=== PATIENT | female | born 1990 | race African-American/Black ===

== ENCOUNTER 2016-12-04 13:53 | Emergency (ER) | payer MEDICAID, OTHER ==
[~2016-12-04] VITALS: Ht 152.4 cm; Wt 70.3 kg
[~2016-12-04 13:53] MED LIST: AMOXICILLIN500 MG ORAL; CIPRODEX OTIC7.5 M1 BOTH EARS; FLONASE1 SPRAYS NASAL; IBUPROFEN600 MG ORAL; PROMETHAZINE V240 ML ORAL; TESSALON PERLE100 M2 ORAL
[2016-12-04 14:11] VITALS: BP 112/67
[2016-12-04 14:46] LABS: APPEARANCE,URINE CLEAR; KETONES,URINE NEGATIVE (NEGATIVE); LEUKOCYTE ESTERASE ,URINE 1+ (NEGATIVE); NITRITE,URINE NEGATIVE (NEGATIVE); PH,URINE 8 (4.5-8.0); PROTEIN,URINE NEGATIVE (NEGATIVE); UROBILINOGEN,URINE 1 MG/DL (0.0-1.0)
[2016-12-04 14:59] LABS: BACTERIA,URINE FEW /HPF; MUCUS,URINE FEW /LPF (NONE/OCC); RBC,URINE 0-2 /HPF (0 - 2); SQUAMOUS EPITHELIAL CELL,UR FEW /LPF (NONE/OCC)
[2016-12-04] MEDS ORDERED: PREDNISONE20 MG ORAL (15:12)
[2016-12-04] MEDS ORDERED: PROAIR HFA8.5 GM INH (15:12)
[2016-12-04] MEDS ORDERED: IBUPROFEN600 MG ORAL (15:12)
[2016-12-04 15:21] VITALS: BP 116/65
--- NOTE | 2016-12-04 16:42 | Emergency Room Report ---
History of Present Illness General Chief Complaint: Upper Respiratory Illness Source: Patient Present Illness HPI The patient is a 26-year-old female presenting for cough and congestion for the past 3 days. The patient states that she does have a history of asthma and has not been using her medications. She denies any sick contacts or recent travel. She states that this does feel like asthma exacerbation. She denies any pain. She denies other symptoms including nausea, vomiting, fever, chills, sore throat, shortness of breath, rash Allergies: Coded Allergies: No Known Allergies (Unverified , 05/28/14) Patient History Past Medical History: see triage record Pertinent Family History: none Last Menstrual Period: 11/24/16 Now: No Reviewed Nursing Documentation: PMH: Agreed, PSxH: Agreed Nursing Documentation-PMH Past Medical History: No History, Except For Hx Asthma: Yes Review of Systems All Other Systems: negative except mentioned in HPI Physical Exam Vital Signs Date Time Temp Pulse Resp B/P Pulse Ox O2 Delivery O2 Flow Rate FiO2 12/04/16 13:58 98.1 77 20 112/67 97 Room Air Sp02 EP Interpretation: reviewed, normal General Appearance: no apparent distress, alert, GCS 15, non-toxic Head: normocephalic, atraumatic Eyes: bilateral eye PERRL, bilateral eye normal inspection ENT: hearing grossly normal, normal pharynx, no angioedema, normal voice Neck: full range of motion, supple/symm/no masses Respiratory: chest non-tender, lungs clear, normal breath sounds, speaking full sentences Cardiovascular #1: regular rate, rhythm, no edema Musculoskeletal: back normal, gait/station normal, normal range of motion, non- tender Neurologic: alert, oriented x3, responsive, motor strength/tone normal, sensory intact, speech normal Psychiatric: judgement/insight normal, memory normal, mood/affect normal, no suicidal/homicidal ideation Skin: normal color, no rash, warm/dry, well hydrated Lymphatic: no adenopathy Medical Decision Making PA Attestation Dr. Echavarria is my supervising physician. Patient management was discussed with my supervising physician Diagnostic Impression: Primary Impression: Asthma Qualified Codes: J45.901 - Unspecified asthma with (acute) exacerbation ER Course The patient is a 26-year-old female presenting for cough and congestion Differential diagnosis include but not limited to asthma, pharyngitis, sinusitis , AOM, bronchitis, PNA PE: No apparent distress. No TTP over maxillary or frontal sinuses. Lungs CTA bilat. No wheezing. No accessory muscle use. Heart: RRR, no abnormal heart sounds Ears: external auditory canal clear. Non erythematous. Bilat TM intact. Cone of light present bilat. No bulging of TM. No serous fluid seen. no nasal D/C no anterior cervical lymphad No tonsillar exudate. Uvula midline.Oropharynx non erythematous The patient asked for a urinalysis to check for infection although she did not have any symptoms. No signs of infection and neg preg. She'll be discharged home with a refill of asthma medications and needs to follow up with PMD Laboratory Tests Test 12/04/16 14:30 Urine Color Pale yellow Urine Appearance Clear Urine pH 8 (4.5-8.0) Urine Specific [place] 1.015 (1.005-1.035) Urine Protein Negative (NEGATIVE) Urine Glucose (UA) Negative (NEGATIVE) Urine Ketones Negative (NEGATIVE) Urine Occult Blood Negative (NEGATIVE) Urine Nitrite Negative (NEGATIVE) Urine Bilirubin Negative (NEGATIVE) Urine Urobilinogen 1 MG/DL (0.0-1.0) H Urine Leukocyte Esterase 1+ (NEGATIVE) H Urine RBC 0-2 /HPF (0 - 2) Urine WBC 2-4 /HPF (0 - 2) Urine Squamous Epithelial Cells Few /LPF (NONE/OCC) Urine Bacteria Few /HPF (NONE) Urine Mucus Few /LPF (NONE/OCC) H Urine HCG, Qualitative Negative Lab Results Impression No signs of infection Last Vital Signs Date Time Temp Pulse Resp B/P Pulse Ox O2 Delivery O2 Flow Rate FiO2 12/04/16 15:21 98.1 71 20 116/65 97 Room Air Status: improved Disposition: HOME, SELF-CARE Condition: Improved Scripts Prednisone* (PREDNISONE*) 20 Mg Tablet 40 MG ORAL DAILY, #10 TAB Prov: TERZIAN,MORRIS P.A. 12/04/16 Albuterol Sulfate* (PROAIR HFA*) 8.5 Gm Hfa.aer.ad 2 PUFFS INH Q6H, #8.5 GM 0 Refills Prov: TERZIAN,MORRIS P.A. 12/04/16 Ibuprofen* (MOTRIN*) 600 Mg Tablet 600 MG ORAL Q6H Y for For Pain, #30 TAB Prov: TERZIAN,MORRIS P.A. 12/04/16 Patient Instructions: Asthma, Adult, Asthma Attack Prevention Additional Instructions: I discussed my findings with the patient. All questions and concerns have been answered. Treatment and medication compliance have been addressed. I advised the patient that they need to follow up with PMD in 3-5 days. Return to ED if symptoms worsen, new symptoms arise, or if needed for any reason. Patient verbalized understanding of discharge instructions. MORRIS LIVINGSTON December 04, 2016 16:42
== END 2016-12-04 15:26 | disposition home or self-care (01) ==
LOC: EMR 14:33
DX: J45.901 Unspecified asthma with (acute) exacerbation (principal)
CPT/HCPCS: 81003; 81025; 99284

== ENCOUNTER 2018-06-10 11:05 | Emergency (ER) | payer MEDICAID ==
[~2018-06-10] VITALS: Ht 152.4 cm; Wt 69.9 kg
[~2018-06-10 11:05] MED LIST changes: +PREDNISONE20 MG ORAL; +PROAIR HFA8.5 GM INH
[2018-06-10 11:35] VITALS: BP 112/62
[2018-06-10 12:06] LABS: BILIRUBIN, URINE NEGATIVE (NEGATIVE); COLOR,URINE PALE YELLOW; GLUCOSE, URINE (UA) NEGATIVE (NEGATIVE); KETONES,URINE NEGATIVE (NEGATIVE); LEUKOCYTE ESTERASE ,URINE NEGATIVE (NEGATIVE); NITRITE,URINE NEGATIVE (NEGATIVE); PH,URINE 8 (4.5-8.0); PROTEIN,URINE NEGATIVE (NEGATIVE); UROBILINOGEN,URINE 1 MG/DL (0.0-1.0)
[2018-06-10 12:11] LABS: APPEARANCE,URINE SLIGHTLY CLOUDY
--- NOTE | 2018-06-10 14:24 | Emergency Room Report ---
History of Present Illness General Chief Complaint: Upper Respiratory Illness Source: Patient Present Illness HPI This patient presents accompanied by her daughter. They have similar symptoms. She has had cough and congestion. She is also had a sore throat. She did have one episode of vomiting a couple days ago. She has a history of asthma. She denies chest pain. She denies abdominal pain. She denies neck pain or stiffness. She denies headache. She has no other complaints. Allergies: Coded Allergies: No Known Allergies (Unverified , 05/28/14) Patient History Past Medical History: see triage record, asthma Social History: Denies: smoking, alcohol use, drug use Last Menstrual Period: 06/07/18 Now: No Reviewed Nursing Documentation: PMH: Agreed; PSxH: Agreed Nursing Documentation-PMH Hx Asthma: Yes Review of Systems All Other Systems: negative except mentioned in HPI Physical Exam Vital Signs Date Time Temp Pulse Resp B/P (MAP) Pulse Ox O2 Delivery O2 Flow Rate FiO2 06/10/18 11:20 98.2 83 18 112/62 98 Room Air Sp02 EP Interpretation: reviewed, normal General Appearance: no apparent distress, alert, GCS 15, non-toxic Head: normocephalic, atraumatic Eyes: bilateral eye normal inspection, bilateral eye PERRL ENT: hearing grossly normal, normal pharynx, no angioedema, normal voice Neck: full range of motion, supple/symm/no masses Respiratory: chest non-tender, lungs clear, normal breath sounds, no respiratory distress, no retraction, no accessory muscle use, speaking full sentences Cardiovascular #1: regular rate, rhythm, no edema Gastrointestinal: normal bowel sounds, non tender, soft, non-distended, no guarding, no rebound Rectal: deferred Musculoskeletal: back normal, gait/station normal, normal range of motion, non- tender Neurologic: alert, oriented x3, responsive, motor strength/tone normal, sensory intact, speech normal Psychiatric: judgement/insight normal, memory normal, mood/affect normal, no suicidal/homicidal ideation Skin: normal color, no rash, warm/dry, well hydrated Medical Decision Making Diagnostic Impression: Primary Impression: Upper respiratory infection Additional Impression: Influenza ER Course This patient has a clinical presentation consistent with influenza. Patient overall is nontoxic with no evidence of pneumonia on chest x-ray. There does not appear to be any emergency complications. Do not feel this patient needs admission at this time. The patient stable vital signs. The patient declined Tamiflu. The patient given close return precautions and followup instructions. Influenza A negative Chest X-Ray Diagnostic Results Chest X-Ray Diagnostic Results : Chest X-Ray Ordered: Yes # of Views/Limited/Complete: 1 View Indication: Other Interpretation: no consolidation, no effusion, no pneumothorax, no acute cardiopulmonary disease Impression: No acute disease Electronically Signed by: Cande Last Vital Signs Date Time Temp Pulse Resp B/P (MAP) Pulse Ox O2 Delivery O2 Flow Rate FiO2 06/10/18 11:35 83 18 Room Air 06/10/18 11:35 98.2 112/62 98 Disposition: HOME, SELF-CARE Condition: Improved Referrals: DILLON HUGHES,REFERRING (PCP) Patient Instructions: Upper Respiratory Infection, Adult Shannon Reagan DO Jun 10, 2018 14:24
[2018-06-10] MEDS ORDERED: ALBUTEROL SULF8.5 GM INH (14:25)
[2018-06-10] MEDS ORDERED: ROBITUSSIN NIG237 ML PO (14:25)
--- NOTE | 2018-06-10 14:48 | Diagnostic Imaging Report ---
Indication: Cough Technique: One view of the chest Comparison: none Findings: Lungs and pleural spaces are clear. The heart is upper limits normal in size. Impression: No acute process
[2018-06-10 15:05] VITALS: BP 115/70
== END 2018-06-10 14:30 | disposition home or self-care (01) ==
LOC: EMR 11:44
DX: J11.1 Influenza due to unidentified influenza virus with other respiratory manifestations (principal); R05 Cough
CPT/HCPCS: 71045; 81003; 81025; 86710; 99283

== ENCOUNTER 2019-01-20 15:38 | Emergency (ER) | payer MEDICAID ==
[~2019-01-20] VITALS: Ht 152.4 cm; Wt 70.3 kg
[~2019-01-20 15:38] MED LIST changes: +ALBUTEROL SULF8.5 GM INH; +ROBITUSSIN NIG237 ML PO
[2019-01-20 16:00] VITALS: BP 103/63
--- NOTE | 2019-01-20 16:00 | NUR ---
ED Nurse Note: Pt walked in to ED with friend due to left lower abdominal pain for 2 days. no n/v/d. cluody urine sample noted. AAO x4. respirations even and non-labored noted. will wait for the further order.
--- NOTE | 2019-01-20 16:20 | Emergency Room Report ---
History of Present Illness General Chief Complaint: Abdominal Pain Source: Patient Present Illness HPI 28-year-old female presents to the emergency department with 2 complaints the first being 10 out of 10 severity tooth ache times several months. Patient states that she was supposed to see a dentist several months ago but did not. She states her Dental pain has progressed significantly over this past week. Patient denies fevers or chills. Reports that her affected teeth continue to break off and she has something stuck inside. She denies sore throat difficulty swallowing or swollen tender lymph nodes. Patient also reports left- sided abdominal and back pain x2 days. Patient states that she was lifting some heavy materials at work yesterday and she noticed her symptoms coming on progressively after doing so. Patient denies nausea, vomiting, constipation, diarrhea, or notable trauma or fall. Dysuria hematuria, urinary frequency urgency. She has not tried any yeer-bki-mkfdmeo medications to relieve her symptoms. Pain is exacerbated with twisting the torso, or palpation. Allergies: Coded Allergies: No Known Allergies (Unverified , 05/28/14) Patient History Past Medical History: see triage record Past Surgical History: none Pertinent Family History: none Social History: Reports: drug use - THC Now: No Reviewed Nursing Documentation: PMH: Agreed; PSxH: Agreed Nursing Documentation-PMH Past Medical History: No Stated History Hx Asthma: Yes Review of Systems All Other Systems: negative except mentioned in HPI Physical Exam Vital Signs Date Time Temp Pulse Resp B/P (MAP) Pulse Ox O2 Delivery O2 Flow Rate FiO2 01/20/19 15:53 98.8 108 20 103/63 (76) 97 Room Air Sp02 EP Interpretation: reviewed, normal General Appearance: no apparent distress, alert, GCS 15, non-toxic Head: normocephalic, atraumatic Eyes: bilateral eye normal inspection, bilateral eye PERRL ENT: hearing grossly normal, normal voice, other - pt. has poor dentition with multiple visible dental carries and cracked teeth. Tooth no. 14 is cracked at the gumline and has surrounding erythema, no palpable flucutance. tender to percussion. Neck: full range of motion Respiratory: chest non-tender, lungs clear, normal breath sounds, speaking full sentences Cardiovascular #1: regular rate, rhythm Gastrointestinal: normal bowel sounds, soft, non-distended, no guarding, tenderness - lateral left ribcage area and ttp posterior flank and paraspinal musculature. no appreciative anterior abdominal tenderness. no rebound. Genitourinary: normal inspection, no CVA tenderness Musculoskeletal: back normal, gait/station normal, normal range of motion, tender - left paraspinal and intercostal musculature of the thoracic and upper lumbar area. no flail chest. no bruises or obvious deformities. no localized bony tenderness. Neurologic: alert, oriented x3, responsive, motor strength/tone normal, sensory intact, normal gait, speech normal, grossly normal Psychiatric: judgement/insight normal Lymphatic: no adenopathy Medical Decision Making PA Attestation Dr. Loja is my supervising Physician whom patient management has been discussed with. Diagnostic Impression: Primary Impression: Infected dental carries Additional Impression: Muscle strain ER Course 28-year-old female presents to the emergency department with 2 complaints the first being 10 out of 10 severity tooth ache times several months. Patient states that she was supposed to see a dentist several months ago but did not. She states her Dental pain has progressed significantly over this past week. Patient denies fevers or chills. Reports that her affected teeth continue to break off and she has something stuck inside. She denies sore throat difficulty swallowing or swollen tender lymph nodes. Patient also reports left- sided abdominal and back pain x2 days. Patient states that she was lifting some heavy materials at work yesterday and she noticed her symptoms coming on progressively after doing so. Patient denies nausea, vomiting, constipation, diarrhea, or notable trauma or fall. Dysuria hematuria, urinary frequency urgency. She has not tried any cgnr-elo-xnkswma medications to relieve her symptoms. Pain is exacerbated with twisting the torso, or palpation. Ddx considered but are not limited to cellulitis, dental abscess, orbital cellulitis, d/l tooth, dental pain. preg. UTI, colitis, acute appendicitis just to name a few. Vital signs: are WNL, pt. is afebrile. H&PE are most consistent with Dental carries with infection, broken teeth, no obvious gum abscess, and MSK strain of the left side of the torso. no evidence to suggest acute abdomen, pt. NAD, non-toxic in appearance. ORDERS: --Urine Hcg: Negative ED INTERVENTIONS: None required at this time. DISCHARGE: At this time pt. is stable for d/c to home. Will provide printed patient care instructions, and any necessary prescriptions. Care plan and follow up instructions have been discussed with the patient prior to discharge. Labs Test 01/20/19 16:07 Urine HCG, Qualitative Negative (NEGATIVE) Last Vital Signs Date Time Temp Pulse Resp B/P (MAP) Pulse Ox O2 Delivery O2 Flow Rate FiO2 01/20/19 15:53 98.8 108 20 103/63 (76) 97 Room Air Status: improved Disposition: HOME, SELF-CARE Condition: Stable Scripts Ibuprofen* (MOTRIN*) 600 Mg Tablet 600 MG ORAL THREE TIMES A DAY, #30 TAB 0 Refills Prov: Milagro Coffey 01/20/19 Amoxicillin/Potassium Clav 875-125 Mg Tab* (AMOX TR-K CLV 875-125 MG TAB*) 1 Each Tablet 1 TAB ORAL EVERY 12 HOURS for 7 Days, #14 TAB Prov: Milagro Coffey 01/20/19 Departure Forms: Return to Work Return to Work Date: Jan 23, 2019 Work Restrictions: No Heavy Lifting Other Restrictions: light duty x 2 days Return to Full Activity: Jan 26, 2019 Patient Instructions: Dental Care and Dentist Visits, Dental Caries, Easy-to- Read, Muscle Strain, [id number] Additional Instructions: Take medications as directed. Follow up with a Dentist in 3-5 days, even if your symptoms have resolved. * * --Please review list of Dental clinics, if you do not already have a Dentist Follow up with a Primary Care Provider in 3-5 days, even if your symptoms have resolved. Return sooner to ED if new symptoms occur, or current symptoms become worse. - Please note that this Emergency Department Report was dictated using [employer] driver technology software, occasionally this can lead to erroneous entry secondary to interpretation by the dictation equipment. Milagro Coffey Jan 20, 2019 16:20
[2019-01-20] MEDS ORDERED: AMOX TR-K CLV1 EAC2 ORAL (17:00)
[2019-01-20] MEDS ORDERED: IBUPROFEN600 MG ORAL (17:00)
[2019-01-20 17:08] VITALS: BP 132/88
--- NOTE | 2019-01-20 17:10 | NUR ---
ER DISCHARGE NOTE: pt left without signing discharge paper works. Patient is cleared to be discharged per ERMD, pt is aox4, on room air, with stable vital signs. pt was given dc and prescription instructions, pt was able to verbalize understanding, pt id band removed. pt is able to ambulate with steady gait. pt took all belongings.
== END 2019-01-20 17:11 | disposition home or self-care (01) ==
LOC: EMR 16:20
DX: K02.9 Dental caries, unspecified (principal); S39.011A Strain of muscle, fascia and tendon of abdomen, initial encounter; X50.0XXA Overexertion from strenuous movement or load, initial encounter; Y92.9 Unspecified place or not applicable; F12.90 Cannabis use, unspecified, uncomplicated
CPT/HCPCS: 81025; 99283

== ENCOUNTER 2019-03-18 01:11 | Emergency (ER) | payer MEDICAID ==
[~2019-03-18] VITALS: Ht 152.4 cm; Wt 77.1 kg
[~2019-03-18 01:11] MED LIST changes: +AMOX TR-K CLV1 EAC2 ORAL
--- NOTE | 2019-03-18 01:33 | NUR ---
ED Nurse Note: pt walked in c/o bug bite on left arm, pt states she doesn't know what bug bit her, pt reports she has itching and pain on left arm. noted mild tenderness and swelling on left arm. will cont monitor.
[2019-03-18 01:34] VITALS: BP 103/76
--- NOTE | 2019-03-18 01:37 | NUR ---
Note jesus in EDM - 03/18/19 at 0137 by [facility] ED Nurse Note: ERMd at the bedside, no need for urine specimen.
--- NOTE | 2019-03-18 01:37 | NUR ---
ED Nurse Note: ERMd at the bedside, per ermd order, no need for urine specimen.
[2019-03-18] MEDS ORDERED: DiphenhydrAMINE & Zinc 28g Cream TOPIC ONE (01:45)
[2019-03-18] MEDS ORDERED: Hydrocortisone 2.5% Oint 30gm TOPIC ONE (01:45)
--- NOTE | 2019-03-18 01:51 | Emergency Room Report ---
History of Present Illness General Chief Complaint: Skin Rash/Abscess Source: Patient Present Illness HPI 28-year-old female presents with bug bite to the left arm, left dorsum of the hand, itchy nature, severity mild, no aggravating relieving factors, patient presents for evaluation. No fever no chills no chest pain or shortness of breath Allergies: Coded Allergies: No Known Allergies (Unverified , 05/28/14) Patient History Past Medical History: see triage record Last Menstrual Period: na : 2 Para: 1 Reviewed Nursing Documentation: PMH: Agreed; PSxH: Agreed Nursing Documentation-PMH Hx Asthma: Yes Review of Systems All Other Systems: negative except mentioned in HPI Physical Exam Vital Signs Date Time Temp Pulse Resp B/P (MAP) Pulse Ox O2 Delivery O2 Flow Rate FiO2 03/18/19 01:17 97.5 87 18 96/76 (83) 95 Room Air Sp02 EP Interpretation: reviewed, normal General Appearance: well appearing, no apparent distress, alert Head: normocephalic, atraumatic Eyes: bilateral eye PERRL, bilateral eye EOMI ENT: uvula midline, moist mucus membranes Neck: supple, thyroid normal, supple/symm/no masses Respiratory: lungs clear, no respiratory distress, no retraction, no accessory muscle use Cardiovascular #1: normal peripheral pulses, regular rate, rhythm, no edema, no gallop, no murmur Gastrointestinal: non tender, soft, no guarding, no rebound Musculoskeletal: normal inspection Neurologic: alert, oriented x3 Psychiatric: mood/affect normal Skin: warm/dry, other - Urticarial rash dorsum of left hand and medial aspect of left upper extremity Medical Decision Making Diagnostic Impression: Primary Impression: Bug bite Qualified Codes: W57.XXXA - Bitten or stung by nonvenomous insect and other nonvenomous arthropods, initial encounter ER Course 28 year old female presents with most likely bug bites. Hydrocortisone cream and benadryl provided in ED. Return precautions discussed Last Vital Signs Date Time Temp Pulse Resp B/P (MAP) Pulse Ox O2 Delivery O2 Flow Rate FiO2 03/18/19 01:34 97.5 86 18 103/76 95 Room Air Disposition: HOME, SELF-CARE Condition: Stable Referrals: [facility]Jnathan Ferreira [facility]. [facility] Patient Instructions: Insect Bite, Ggli-[id number], Rash Additional Instructions: The patient was provided with discharge instructions, notified to follow-up with a primary care doctor and or specialist in the next 24-48 hours, and to return to the ED if they have worsening of their symptoms. Please note that this report is being documented using [employer], [employer] technology. This can lead to erroneous entry secondary to incorrect interpretation by the dictating instrument. Justo Pandya MD Mar 18, 2019 01:51
[2019-03-18] MEDS ORDERED: Hydrocortisone 1% Cr 15gm TOPIC ONE ×2 (01:56→02:00)
--- NOTE | 2019-03-18 01:57 | NUR ---
ED Nurse Note: noted no hydrocortisone 2.5% cream, per ERMd, order changed to hydrocortisone 1% cream.
--- NOTE | 2019-03-18 02:03 | NUR ---
ED Nurse Note: pt cleared to be d/c per ERMD, pt discharge and aftercare instruction provided, pt advised to follow up with pcp or return to ed if changes in condition, vss, ambulatory w/ steady gait, left w/ all belongings accompanied by family.
[2019-03-18 02:04] VITALS: BP 103/76
== END 2019-03-18 02:04 | disposition home or self-care (01) ==
LOC: EMR 01:29
DX: S40.862A Insect bite (nonvenomous) of left upper arm, initial encounter (principal); R21 Rash and other nonspecific skin eruption; J45.909 Unspecified asthma, uncomplicated; W57.XXXA Bitten or stung by nonvenomous insect and other nonvenomous arthropods, initial encounter; Y92.9 Unspecified place or not applicable
CPT/HCPCS: 99282

== ENCOUNTER 2019-04-07 12:10 | Emergency (ER) | payer MEDICAID ==
[~2019-04-07] VITALS: Ht 152.4 cm; Wt 78.0 kg
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
[2019-04-07 12:42] VITALS: BP 120/75
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
[2019-04-07] MEDS ORDERED: IBU800 MG PO (13:24)
[2019-04-07] MEDS ORDERED: ROBAXIN-500MG ORAL (13:24)
[2019-04-07 13:36] VITALS: BP 120/75
--- NOTE | 2019-04-07 13:37 | NUR ---
ED Nurse Note: Pt cleared by health care Provider for discharge. DC instructions/prescription was given and explained to pt and verbalized understanding of teachings. All medical deviecs such as ID band removed. Pt is AAO x4, ambulatory and left with all personal belongings.
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
== END 2019-04-07 13:38 | disposition home or self-care (01) ==
LOC: EMR 13:08
DX: S80.01XA Contusion of right knee, initial encounter (principal); J45.909 Unspecified asthma, uncomplicated; V03.90XA Pedestrian on foot injured in collision with car, pick-up truck or van, unspecified whether traffic or nontraffic accident, initial encounter; Y92.9 Unspecified place or not applicable
CPT/HCPCS: 73562; Z7502; 99283